=== PATIENT | male | born 2000 | race Caucasian/White ===

== ENCOUNTER 2021-08-26 16:36 | Emergency (ER) | payer OTHER ==
[2021-08-26 16:52] VITALS: BP 114/60; PULSE 100; TEMP 98; BMI 30.2
[2021-08-26] MEDS ORDERED: SODIUM CHLORIDE 1,000 ML IV STA (17:59)
[2021-08-26 18:24] LABS: EOS % 0.4 % (0-4.5); HEMATOCRIT 41.8 % (35.4-49); HEMOGLOBIN 13.6 GM/dL (11.7-16.9); LYMPH % 12.3 % (8-40); MCH 24.7 pg (25.7-33.7); MCHC 32.6 g/dl (32.0-35.9); MEAN CELL VOLUME 75.6 fl (80-96); MEAN PLT VOLUME 9.3 fl (7.5-11.1); MONO % 6.8 % (3.8-10.2); NEUT % 79.5 % (42.8-82.8); PLATELET COUNT 317 10^3/uL (134-434); RBC 5.53 M/mm3 (4.00-5.60); RDW 16.2 % (11.9-15.9); WHITE BLOOD COUNT 8.9 K/mm3 (4.0-10.0)
[2021-08-26 18:43] LABS: BLOOD UREA NITROGEN 8.6 mg/dL (7-18); CALCIUM 9.1 mg/dL (8.5-10.1)
[2021-08-26 18:44] LABS: ALBUMIN 4.4 g/dl (3.4-5.0)
[2021-08-26 18:48] LABS: BILIRUBIN,TOTAL 0.5 mg/dL (0.2-1); TOT PROT 8.2 g/dl (6.4-8.2)
[2021-08-26 19:26] LABS: URINE APPEARANCE CLEAR; URINE BILIRUBIN NEGATIVE (NEGATIVE); URINE COLOR YELLOW; URINE GLUCOSE (UA) NEGATIVE (NEGATIVE); URINE KETONE NEGATIVE (NEGATIVE); URINE LEUK ESTERASE NEGATIVE (NEGATIVE); URINE NITRITE NEGATIVE (NEGATIVE); URINE PROTEIN NEGATIVE (NEGATIVE); URINE UROBILINOGEN 0.2 mg/dL (0.2-1.0)
[2021-08-26] MEDS ORDERED: PENICILLIN G BENZATHINE 2,400,000 UNIT/4 ML PFS IM ONE (19:38)
[2021-08-26] MEDS ORDERED: PENICILLIN G BENZATHINE 2,400,000 UNIT/4 ML PFS ONE (20:14)
== END 2021-08-26 20:25 | disposition home or self-care (01) ==
LOC: JER 16:36
PROC: 3E0337Z Introduction of Electrolytic and Water Balance Substance into Peripheral Vein, Percutaneous Approach (ICD-10-PCS; principal; 2021-08-26)
PROC: 3E023GC Introduction of Other Therapeutic Substance into Muscle, Percutaneous Approach (ICD-10-PCS; 2021-08-26)
DX: R10.84 Generalized abdominal pain (principal)
CPT/HCPCS: 36415; 74018-TC-FY; 80053; 81003; 83690; 85025; 87086; 87491; 87591; 99284-25

== ENCOUNTER 2022-01-02 12:52 | Day surgery (SDC) | payer OTHER ==
[2021-12-25 16:31] VITALS: BMI 28.6
[2022-01-02] MEDS ORDERED: PROPOFOL 20 ML ONE (13:54)
[2022-01-02 14:14] VITALS: RESP 16; TEMP 97.7
[2022-01-02 14:40] VITALS: BP 117/58; PULSE 84
== END 2022-01-02 14:50 | disposition home or self-care (01) ==
LOC: FASU-ENDO 12:52
PROVIDERS: ATTEND Internal Medicine Gastroenterology
PROC: 0DJD8ZZ Inspection of Lower Intestinal Tract, Via Natural or Artificial Opening Endoscopic (ICD-10-PCS; principal; 2022-01-02 13:53)
DX: K64.1 Second degree hemorrhoids (principal); K64.8 Other hemorrhoids